=== PATIENT | male | born 1960 | race Caucasian/White ===

== ENCOUNTER 2016-12-11 06:46 | Inpatient (IN) | payer BC ==
[~2016-12-11] VITALS: Ht 182.9 cm; Wt 117.2 kg
[~2016-12-11 06:46] MED LIST: ASPIRIN 32325 MG/TAB PO; ASPIRIN 81M81 MG/TA2 PO; CEPHALEXIN500 M1 PO; COLACE 100100 MG/CAP PO; DIFLUCAN 100MG100 MG PO; LEVAQUIN 750MG750 M1 PO; LIPITOR20 MG PO; LOPID 600M600 MG/TAB PO; MULTIPLE VITAMI1 CAP PO; MULTIVITAMIN1 TA1 PO; NITROSTAT0.4 MG/TAB SL; NO HOME MEDICATIONS; NORVASC 5MG5 MG/TAB PO; PEPCID 20MG TAB20 MG; PHENERGAN 25 TA25 MG PO; PHENERGAN W/CO120 ML PO; PLAVIX 75MG TAB75 MG PO; PRILOSEC 20MG20 MG PO; PROBIOTIC FORMU1 CAP PO; SYNTHROID0.05 MG/TA PO; TESSALON P100 MG/CAP PO; TOPROL XL 25MG25 MG PO; TOPROL XL 50MG50 MG PO; TUSS PO; ZANTAC 150MG T150 MG PO; ZESTRIL 10MG10 MG PO
[2016-12-11 07:39] LABS: BASO # 0.1 (0.0-0.2); BASO % 0.6 % (0.0-2.0); EOS # 0.2 (0.0-0.7); EOS % 1.8 % (0-4.0); GRAN # 6.3 (1.4-6.5); GRAN % 70.9 % (42.2-75.2); HEMOGLOBIN 16.1 g/dl (13.5-18.0); LYMPH # 1.5 (1.2-3.4); LYMPH % 16.8 % (20.0-51.0); MEAN CELL VOLUME 90 fl (80.0-100.0); MEAN CORPUSCULAR HEMOGLOBIN 31 pg (27.0-31.0); MEAN CORPUSCULAR HGB CONC 34 g/dl (33.0-37.0); MEAN PLATELET VOLUME 10.8 fl (7.4-10.4); MONO # 0.9 (0.1-0.6); MONO % 9.6 % (1.7-9.3); PLATELET COUNT 288 K/mm3 (130-400); RED BLOOD COUNT 5.23 M/mm3 (4.20-5.60); WHITE BLOOD COUNT 8.9 K/mm3 (4.8-10.8)
[2016-12-11 07:55] LABS: ADJUSTED CALCIUM 9.2 mg/dL (8.4-10.2); ALANINE AMINOTRANSFERASE 32 U/L (21-72); ALBUMIN 4.7 gm/dL (3.5-5.0); ALKALINE PHOSPHATASE 75 U/L (50-136); ANION GAP 11 mmol/L (7-16); BLOOD UREA NITROGEN 11 mg/dL (9-20); C-REACTIVE PROTEIN 0.6 mg/dL (0.0-0.9); CALCIUM 9.8 mg/dL (8.4-10.2); CARBON DIOXIDE 25 mmol/L (22-30); CHLORIDE 104 mmol/L (98-107); CREATININE, serum 0.81 mg/dL (0.66-1.25); GLUCOSE 99 mg/dL (74-106); POTASSIUM 4.3 mmol/L (3.4-5.0); SODIUM 139 mmol/L (137-145); TOTAL PROTEIN 8.1 gm/dL (6.4-8.2)
[2016-12-11 08:07] LABS: TROPONIN-I < 0.012 ng/mL (0.000-0.034)
[2016-12-11] MEDS ORDERED: XANAX .25M0.25 MG/TA PO (08:08)
[2016-12-11] MEDS ORDERED: PRINIVIL10 MG PO (08:10)
[2016-12-11 10:39] VITALS: BP 141/84; PULSE 77; TEMP 97.8
[2016-12-11 14:33] VITALS: BP 153/84; PULSE 81; TEMP 97.5
[2016-12-11 18:07] VITALS: BP 143/83; PULSE 91; TEMP 98.6
[2016-12-11 23:00] VITALS: BP 136/87; PULSE 93; TEMP 98.3
[2016-12-12 02:55] VITALS: BP 127/76; PULSE 88; TEMP 98.2
[2016-12-12 05:40] VITALS: BP 149/74; PULSE 84; TEMP 97.7
[2016-12-12 07:43] LABS: HEMATOCRIT 47.2 % (42.0-52.0); HEMOGLOBIN 15.4 g/dl (13.5-18.0); MEAN CELL VOLUME 94 fl (80.0-100.0); MEAN CORPUSCULAR HEMOGLOBIN 31 pg (27.0-31.0); MEAN CORPUSCULAR HGB CONC 33 g/dl (33.0-37.0); MEAN PLATELET VOLUME 11.3 fl (7.4-10.4); PLATELET COUNT 243 K/mm3 (130-400); RED BLOOD COUNT 5.02 M/mm3 (4.20-5.60); REDCELL DISTRIBUTION WIDTH-CV 14.6 % (11.5-14.5); WHITE BLOOD COUNT 8.2 K/mm3 (4.8-10.8)
[2016-12-12 07:51] LABS: ADD PATHOLOGY DIFF REVIEW NO
[2016-12-12 07:55] LABS: CALCIUM 8.6 mg/dL (8.4-10.2); CREATININE, serum 0.75 mg/dL (0.66-1.25); POTASSIUM 4.7 mmol/L (3.4-5.0)
[2016-12-12 08:09] LABS: BAND 23 % (0-10); EOSINOPHIL 5 % (0-4); NEUTROPHILS 36 % (42.0-75.2); TOTAL CELLS COUNTED 100
[2016-12-12 08:10] LABS: PLATELET ESTIMATE NORMAL (NORMAL)
[2016-12-12 09:22] VITALS: BP 147/84; PULSE 91; TEMP 97.9
[2016-12-12 13:51] VITALS: BP 157/81; PULSE 88; TEMP 96.8
[2016-12-12 17:45] VITALS: BP 163/81; PULSE 101; PULSE 82; TEMP 97.5
[2016-12-12 21:17] VITALS: BP 175/85; PULSE 91; TEMP 98.5
[2016-12-13 02:00] VITALS: BP 152/73; PULSE 88; TEMP 98.3
[2016-12-13 06:29] VITALS: BP 150/78; PULSE 87; TEMP 98
[2016-12-13 09:25] LABS: BASO % 0.3 % (0.0-2.0); EOS # 0.2 (0.0-0.7); EOS % 3.4 % (0-4.0); GRAN # 4.1 (1.4-6.5); GRAN % 61.1 % (42.2-75.2); HEMATOCRIT 48.1 % (42.0-52.0); HEMOGLOBIN 16.3 g/dl (13.5-18.0); LYMPH # 1.4 (1.2-3.4); LYMPH % 20.9 % (20.0-51.0); MEAN CELL VOLUME 91 fl (80.0-100.0); MEAN CORPUSCULAR HEMOGLOBIN 31 pg (27.0-31.0); MEAN CORPUSCULAR HGB CONC 34 g/dl (33.0-37.0); MONO % 14.2 % (1.7-9.3); PLATELET COUNT 254 K/mm3 (130-400); RED BLOOD COUNT 5.29 M/mm3 (4.20-5.60); REDCELL DISTRIBUTION WIDTH-CV 14.3 % (11.5-14.5); WHITE BLOOD COUNT 6.7 K/mm3 (4.8-10.8)
[2016-12-13 09:33] LABS: ADJUSTED CALCIUM 8.7 mg/dL (8.4-10.2); ALBUMIN 4.4 gm/dL (3.5-5.0); BILIRUBIN,TOTAL 1.1 mg/dL (0.0-1.0); CREATININE, serum 0.77 mg/dL (0.66-1.25); POTASSIUM 4.1 mmol/L (3.4-5.0); TOTAL PROTEIN 7.8 gm/dL (6.4-8.2)
[2016-12-13 10:29] VITALS: BP 171/89; PULSE 89; TEMP 97.4
[2016-12-13 14:15] VITALS: BP 157/72; PULSE 83; TEMP 97.7
[2016-12-13 18:33] VITALS: BP 148/75; PULSE 76; TEMP 98.1
[2016-12-13 22:26] VITALS: BP 153/72; PULSE 90; TEMP 98.3
[2016-12-14 02:35] VITALS: BP 144/80; PULSE 76; TEMP 98.2
[2016-12-14 05:57] VITALS: BP 133/67; PULSE 70; TEMP 98.1
[2016-12-14 10:58] VITALS: BP 128/75; PULSE 72; TEMP 98.2
[2016-12-14 10:59] VITALS: BP 153/78; PULSE 77; TEMP 97.9
[2016-12-14 14:10] VITALS: BP 148/71; PULSE 85; TEMP 98.7
== END 2016-12-14 16:00 | disposition home or self-care (01) | DRG 390 ==
LOC: COL.ER 06:46 → SURG 09:49
PROVIDERS: Physician Assistant; Surgery
DX: K56.60 Unspecified intestinal obstruction (principal); I10 Essential (primary) hypertension; Z85.71 Personal history of Hodgkin lymphoma
CPT/HCPCS: C9113; J1170; J2405; J7030; J7042; Q9967

== ENCOUNTER 2017-10-28 22:33 | Emergency (ER) | payer SELFPAY ==
[~2017-10-28] VITALS: Ht 182.9 cm; Wt 95.5 kg
[~2017-10-28 22:33] MED LIST changes: +PRINIVIL10 MG PO; +XANAX .25M0.25 MG/TA PO
[2017-10-28 22:34] VITALS: BP 169/88; TEMP 98.1
[2017-10-29 00:12] LABS: BASO % 0.4 % (0.0-2.0); EOS # 0.1 (0.0-0.7); EOS % 1.1 % (0-4.0); GRAN # 7.6 (1.4-6.5); GRAN % 73.3 % (42.2-75.2); HEMATOCRIT 41.7 % (42.0-52.0); HEMOGLOBIN 14.4 g/dl (13.5-18.0); LYMPH # 1.4 (1.2-3.4); LYMPH % 13.1 % (20.0-51.0); MEAN CELL VOLUME 94 fl (80.0-100.0); MEAN CORPUSCULAR HEMOGLOBIN 32 pg (27.0-31.0); MEAN CORPUSCULAR HGB CONC 35 g/dl (33.0-37.0); MEAN PLATELET VOLUME 10.2 fl (7.4-10.4); MONO # 1.2 (0.1-0.6); MONO % 11.8 % (1.7-9.3); PLATELET COUNT 298 K/mm3 (130-400); RED BLOOD COUNT 4.46 M/mm3 (4.20-5.60); REDCELL DISTRIBUTION WIDTH-CV 15.4 % (11.5-14.5)
[2017-10-29 00:21] LABS: ALBUMIN 4.2 gm/dL (3.5-5.0); BILIRUBIN,TOTAL 0.6 mg/dL (0.0-1.0); CREATININE, serum 0.75 mg/dL (0.66-1.25); POTASSIUM 3.6 mmol/L (3.4-5.0); TOTAL PROTEIN 7.3 gm/dL (6.4-8.2)
[2017-10-29 02:18] VITALS: PULSE 89
== END 2017-10-29 02:20 | disposition home or self-care (01) ==
LOC: COL.ER 22:33
PROVIDERS: Physician Assistant
DX: S51.821A Laceration with foreign body of right forearm, initial encounter (principal); S00.93XA Contusion of unspecified part of head, initial encounter; Z79.82 Long term (current) use of aspirin; Z79.02 Long term (current) use of antithrombotics/antiplatelets; V29.9XXA Motorcycle rider (driver) (passenger) injured in unspecified traffic accident, initial encounter; Y92.410 Unspecified street and highway as the place of occurrence of the external cause

== ENCOUNTER 2019-05-26 09:43 | Inpatient (IN) | payer BC ==
[~2019-05-26] VITALS: Ht 182.9 cm; Wt 89.5 kg
[2019-05-26 10:54] LABS: BASO % 0.3 % (0.0-2.0); EOS # 0.1 (0.0-0.7); EOS % 0.5 % (0-4.0); GRAN # 9.1 (1.4-6.5); GRAN % 79.6 % (42.2-75.2); HEMATOCRIT 50.8 % (42.0-52.0); HEMOGLOBIN 17.3 g/dl (13.5-18.0); LYMPH # 1.1 (1.2-3.4); LYMPH % 9.1 % (20.0-51.0); MEAN CELL VOLUME 94 fl (80.0-100.0); MEAN CORPUSCULAR HEMOGLOBIN 32 pg (27.0-31.0); MEAN CORPUSCULAR HGB CONC 34 g/dl (33.0-37.0); MEAN PLATELET VOLUME 11.5 fl (7.4-10.4); MONO # 1.2 (0.1-0.6); MONO % 10.1 % (1.7-9.3); PLATELET COUNT 264 K/mm3 (130-400); RED BLOOD COUNT 5.39 M/mm3 (4.20-5.60); REDCELL DISTRIBUTION WIDTH-CV 13.5 % (11.5-14.5)
[2019-05-26 11:08] LABS: ALBUMIN 5.2 gm/dL (3.5-5.0); BILIRUBIN,TOTAL 1.2 mg/dL (0.0-1.0); C-REACTIVE PROTEIN 0.8 mg/dL (0.0-0.9); CALCIUM 10.7 mg/dL (8.4-10.2); CREATININE, serum 1.09 (0.66-1.25); POTASSIUM 4.3 mmol/L (3.4-5.0); TOTAL PROTEIN 8.7 gm/dL (6.4-8.2)
[2019-05-26 14:44] VITALS: BP 128/63; PULSE 84; TEMP 97.7
[2019-05-26] MEDS ORDERED: P (15:23)
--- NOTE | 2019-05-26 15:43 | NUR ---
Patient admitted from ER to room 349. Patient alert & oriented. Inital, med rec & 5 page completed. Ng to Lis. Ivf per orders. Npo few ice chips provided. Patient wanting to rest
--- NOTE | 2019-05-26 18:11 | NUR ---
PATIENT UP AMBULATING HALLS. MINIAML NEEDS. WILL MONITOR.
[2019-05-26 20:00] VITALS: BP 114/63; PULSE 87; TEMP 98.3
[2019-05-27 01:33] VITALS: BP 112/59; PULSE 81; TEMP 98
[2019-05-27 04:41] VITALS: BP 115/68; PULSE 86; TEMP 98.4
--- NOTE | 2019-05-27 04:59 | NUR ---
Patient has had minimal needs throughout the night. Requests pain medication at HS. Effective. NG tube to LIS. Morris drainage noted from NG. Patient states he has passed gas and has been feeling "rumbles" in his stomach. Patient takes ice chips, but is NPO otherwise. Will continue to monitor.
[2019-05-27 07:29] VITALS: BP 129/73; PULSE 80; TEMP 98.1
[2019-05-27 08:18] LABS: BASO % 0.4 % (0.0-2.0); EOS # 0.2 (0.0-0.7); EOS % 2.3 % (0-4.0); GRAN # 6.6 (1.4-6.5); GRAN % 66.6 % (42.2-75.2); HEMATOCRIT 46.4 % (42.0-52.0); HEMOGLOBIN 15.6 g/dl (13.5-18.0); LYMPH # 1.8 (1.2-3.4); LYMPH % 17.9 % (20.0-51.0); MEAN CELL VOLUME 95 fl (80.0-100.0); MEAN CORPUSCULAR HEMOGLOBIN 32 pg (27.0-31.0); MEAN CORPUSCULAR HGB CONC 34 g/dl (33.0-37.0); MEAN PLATELET VOLUME 11.2 fl (7.4-10.4); MONO # 1.2 (0.1-0.6); MONO % 12.6 % (1.7-9.3); PLATELET COUNT 258 K/mm3 (130-400); RED BLOOD COUNT 4.88 M/mm3 (4.20-5.60); REDCELL DISTRIBUTION WIDTH-CV 13.7 % (11.5-14.5)
[2019-05-27 08:31] LABS: BILIRUBIN,TOTAL 1.1 mg/dL (0.0-1.0); CALCIUM 9.5 mg/dL (8.4-10.2); CREATININE, serum 0.9 (0.66-1.25); POTASSIUM 3.9 mmol/L (3.4-5.0)
[2019-05-27 11:47] VITALS: BP 146/48; PULSE 88; TEMP 97.9
--- NOTE | 2019-05-27 12:00 | NUR ---
Patients NG tube has been discontinued. IVF's stopped at this time. Starting patient on a soft diet. He has been taking in clear liquids without pain or nausea. He is passing flatus and having bowel movements this am. No other changes at this time. Call light within reach.
--- NOTE | 2019-05-27 13:47 | NUR ---
Plan: To return home with karen [phone] as care support. Patient also listed as EMR. Patient declined a DPOA at this time. They reside in [facility]. Assess: SW met with patient at his bedside. 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 Patient denied the use of any DME, and reported that his PCP is Dr. Newell, who will be leaving the area. Patient reported that he will have to locate a new PCP. Patient reported that he usually gets his medications from [facility], with no concerns. patient declined receiving HHS at this time. plan: Patient was educated about community resources. He reported that his is in the process of driving home from visiting her daughter in [place].
--- NOTE | 2019-05-27 17:10 | NUR ---
Patient is discharging home. He has been tolerating a soft diet well without nausea or pain. Continues to pass flatus. He stated he is feeling much better. Discharge instructions discussed with patient. No questions verbalized. Copies of discharge instructions sent with patient. Patient is walking out with [place] [place]. All belongings packed up and sent with patient.
== END 2019-05-27 17:16 | disposition home or self-care (01) | DRG 390 ==
LOC: COL.ER 09:43 → SURG 12:51
PROVIDERS: Nurse Practitioner; ADMIT Surgery
DX: K56.600 Partial intestinal obstruction, unspecified as to cause (principal); Z95.5 Presence of coronary angioplasty implant and graft; Z79.82 Long term (current) use of aspirin; Z90.81 Acquired absence of spleen; Z85.72 Personal history of non-Hodgkin lymphomas
CPT/HCPCS: J1170; J2405; J3010; J7030; J7120; Q9967

== ENCOUNTER 2019-09-30 04:07 | Emergency (ER) | payer BC ==
[~2019-09-30] VITALS: Ht 182.9 cm; Wt 86.4 kg
[~2019-09-30 04:07] MED LIST changes: +P
[2019-09-30 04:20] VITALS: TEMP 98.9
[2019-09-30 04:34] LABS: BASO # 0.1 (0.0-0.2); BASO % 0.9 % (0.0-2.0); EOS # 0.2 (0.0-0.7); EOS % 4.3 % (0-4.0); GRAN # 2.3 (1.4-6.5); GRAN % 40.9 % (42.2-75.2); HEMATOCRIT 45.1 % (42.0-52.0); HEMOGLOBIN 15.1 g/dl (13.5-18.0); LYMPH # 2.3 (1.2-3.4); LYMPH % 40.9 % (20.0-51.0); MEAN CELL VOLUME 94 fl (80.0-100.0); MEAN CORPUSCULAR HEMOGLOBIN 32 pg (27.0-31.0); MEAN CORPUSCULAR HGB CONC 34 g/dl (33.0-37.0); MEAN PLATELET VOLUME 10.9 fl (7.4-10.4); MONO # 0.7 (0.1-0.6); MONO % 12.8 % (1.7-9.3); PLATELET COUNT 255 K/mm3 (130-400); RED BLOOD COUNT 4.79 M/mm3 (4.20-5.60); REDCELL DISTRIBUTION WIDTH-CV 14.6 % (11.5-14.5)
[2019-09-30 04:40] LABS: INR 0.9 (0.8-3.0); PROTHROMBIN TIME 9.6 SECONDS (9.7-12.8)
[2019-09-30 04:43] LABS: PARTIAL THROMBOPLASTIN TIME 33.5 SECONDS (26.0-37.0)
[2019-09-30 04:46] LABS: ALANINE AMINOTRANSFERASE 22 U/L (4-49); ALBUMIN 4.3 gm/dL (3.5-5.0); ALKALINE PHOSPHATASE 65 U/L (50-136); ANION GAP 8 mmol/L (7-16); AST,SGOT 33 U/L (15-37); BILIRUBIN,TOTAL 0.6 mg/dL (0.0-1.0); BLOOD UREA NITROGEN 20 mg/dL (9-20); CALCIUM 9.1 mg/dL (8.4-10.2); CARBON DIOXIDE 24 mmol/L (22-30); CHLORIDE 104 mmol/L (98-107); CREATININE, serum 0.72 (0.66-1.25); GLUCOSE 111 mg/dL (74-106); SODIUM 136 mmol/L (137-145); TOTAL PROTEIN 7.5 gm/dL (6.4-8.2)
[2019-09-30 05:08] LABS: TROPONIN-I < 0.012 ng/mL (0.000-0.035)
[2019-09-30 05:43] LABS: ARTERIAL BLD GAS O2 SATURATION 93.2 % (92-100); ARTERIAL BLD GAS TCO2 CT 19.5; ARTERIAL BLOOD GAS BASE EXCESS -4.3 (-2-2); ARTERIAL BLOOD GAS HCO3 18.6 meq/L (22-26); ARTERIAL BLOOD GAS PCO2 28.6 mmHg (35-45); ARTERIAL BLOOD GAS PO2 69.4 mmHg (80-100); ARTERIAL BLOOD GAS pH 7.43 (7.35-7.45)
[2019-09-30 08:13] VITALS: BP 168/88; PULSE 76
== END 2019-09-30 08:40 | disposition short-term general hospital (02) ==
LOC: COL.ER 04:07
PROVIDERS: Emergency Medicine
DX: R04.2 Hemoptysis (principal); R09.02 Hypoxemia; I10 Essential (primary) hypertension; E78.5 Hyperlipidemia, unspecified; I25.10 Atherosclerotic heart disease of native coronary artery without angina pectoris; Z79.82 Long term (current) use of aspirin; Z85.71 Personal history of Hodgkin lymphoma; Z87.09 Personal history of other diseases of the respiratory system; Z90.81 Acquired absence of spleen; Z95.5 Presence of coronary angioplasty implant and graft
CPT/HCPCS: J2060; J7030; Q9967

== ENCOUNTER 2019-11-25 21:33 | Emergency (ER) | payer BC ==
[~2019-11-25] VITALS: Ht 180.3 cm; Wt 95.5 kg
[2019-11-25 21:47] LABS: BASO % 0.4 % (0.0-2.0); EOS # 0.1 (0.0-0.7); EOS % 0.9 % (0-4.0); GRAN # 6.9 (1.4-6.5); GRAN % 65.8 % (42.2-75.2); HEMATOCRIT 43.1 % (42.0-52.0); HEMOGLOBIN 14.5 g/dl (13.5-18.0); LYMPH % 18.9 % (20.0-51.0); MEAN CELL VOLUME 94 fl (80.0-100.0); MEAN CORPUSCULAR HEMOGLOBIN 32 pg (27.0-31.0); MEAN CORPUSCULAR HGB CONC 34 g/dl (33.0-37.0); MEAN PLATELET VOLUME 10.9 fl (7.4-10.4); MONO # 1.4 (0.1-0.6); MONO % 13.6 % (1.7-9.3); PLATELET COUNT 243 K/mm3 (130-400); RED BLOOD COUNT 4.57 M/mm3 (4.20-5.60); REDCELL DISTRIBUTION WIDTH-CV 13.8 % (11.5-14.5)
[2019-11-25 21:56] LABS: ALANINE AMINOTRANSFERASE 22 U/L (4-49); ALBUMIN 4.5 gm/dL (3.5-5.0); ALKALINE PHOSPHATASE 56 U/L (50-136); ANION GAP 12 mmol/L (7-16); AST,SGOT 37 U/L (15-37); BILIRUBIN,TOTAL 0.5 mg/dL (0.0-1.0); BLOOD UREA NITROGEN 24 mg/dL (9-20); CALCIUM 9.7 mg/dL (8.4-10.2); CARBON DIOXIDE 20 mmol/L (22-30); CHLORIDE 108 mmol/L (98-107); CREATINE KINASE 213 U/L (55-170); CREATININE, serum 1.55 (0.66-1.25); GLUCOSE 94 mg/dL (74-106); POTASSIUM 3.6 mmol/L (3.4-5.0); SODIUM 140 mmol/L (137-145); TOTAL PROTEIN 7.5 gm/dL (6.4-8.2)
[2019-11-25 22:12] LABS: TROPONIN-I < 0.012 ng/mL (0.000-0.035)
[2019-11-26 00:11] VITALS: BP 128/74; PULSE 76; TEMP 98.3
== END 2019-11-26 00:32 | disposition home or self-care (01) ==
LOC: COL.ER 21:33
PROVIDERS: Emergency Medicine
DX: E16.2 Hypoglycemia, unspecified (principal); N28.9 Disorder of kidney and ureter, unspecified; R55 Syncope and collapse; I25.10 Atherosclerotic heart disease of native coronary artery without angina pectoris; E78.5 Hyperlipidemia, unspecified; Z79.82 Long term (current) use of aspirin; Z85.71 Personal history of Hodgkin lymphoma; Z95.5 Presence of coronary angioplasty implant and graft
CPT/HCPCS: J7030

== ENCOUNTER 2020-10-21 10:32 | Observation (INO) | payer BC ==
[~2020-10-21] VITALS: Ht 180.3 cm; Wt 88.6 kg
[2020-10-21 11:23] LABS: ALBUMIN 5.2 gm/dL (3.5-5.0); BILIRUBIN,TOTAL 0.8 mg/dL (0.0-1.0); CALCIUM 10.5 mg/dL (8.4-10.2); CREATININE, serum 1.11 (0.66-1.25); POTASSIUM 4.3 mmol/L (3.4-5.0); TOTAL PROTEIN 8.9 gm/dL (6.4-8.2)
[2020-10-21 11:26] LABS: BASO % 0.2 % (0.0-2.0); EOS % 0.3 % (0-4.0); GRAN # 9.1 (1.4-6.5); GRAN % 80.2 % (42.2-75.2); HEMATOCRIT 48.7 % (42.0-52.0); HEMOGLOBIN 16.9 g/dl (13.5-18.0); LYMPH # 0.7 (1.2-3.4); LYMPH % 5.7 % (20.0-51.0); MEAN CELL VOLUME 93 fl (80.0-100.0); MEAN CORPUSCULAR HEMOGLOBIN 32 pg (27.0-31.0); MEAN CORPUSCULAR HGB CONC 35 g/dl (33.0-37.0); MEAN PLATELET VOLUME 11.6 fl (7.4-10.4); MONO # 1.5 (0.1-0.6); MONO % 13.3 % (1.7-9.3); PLATELET COUNT 266 K/mm3 (130-400); RED BLOOD COUNT 5.25 M/mm3 (4.20-5.60); REDCELL DISTRIBUTION WIDTH-CV 14.4 % (11.5-14.5)
[2020-10-21 13:23] VITALS: BP 145/70; PULSE 81; TEMP 98
--- NOTE | 2020-10-21 14:08 | NUR ---
Patient to room 347 by wheelchair from ER. Nurse oriented patient to location, call light and bed. Assessment complete.VSS. IV CDI. NG tube intact and on LIS. Denies pain and discomfort. No further needs expressed from the patient. Call light within reach
[2020-10-21 16:08] VITALS: BP 124/71; PULSE 85; TEMP 97.7
--- NOTE | 2020-10-21 17:48 | NUR ---
Patient resting in bed. Independent in room. VSS. IV CDI, fluids infusing. Denies pain and discomfort. NG tube LIS, moderate output. Ice chips at the bedside. Call light within reach
--- NOTE | 2020-10-21 19:30 | NUR ---
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 Assessment complete. A&Ox3. Denies pain/nausea/shortness of breath. States "I am starting to feel movement in my belly." NG to right nare 16F to LIS. Morris return noted to suction cannister. Has been NPO except for a few ice chips. Has been up to ambulate in the hallway. Plan of care discussed for this shift to include pain/nausea control/HS meds/NPO status/calling for questions/concerns. Verbalizes understanding/denies needs. Call light in reach. Will monitor.
[2020-10-21 19:45] VITALS: BP 118/59; PULSE 78; TEMP 97.6
[2020-10-21 23:53] VITALS: BP 113/62; PULSE 77; TEMP 97.9
--- NOTE | 2020-10-22 00:21 | NUR ---
Awake in bed with lights out trying to rest. Denies pain/nausea/shortness of breath. Instructed to use urinal with next void so a UA can be collected. Verbalizes understanding. Noted to have had approx 300mls of NG output to cannister-brown/green/undigested food. Denies needs. Call light in reach. Will monitor.
[2020-10-22 04:36] VITALS: BP 118/58; PULSE 73; TEMP 97.5
--- NOTE | 2020-10-22 06:27 | NUR ---
Rested well this shift. Total out NG 600mls of brown/green fluid with undigested food. Denies pain/nausea/shortness of breath. VS remained stable. Denies current needs. Call light in reach. Will monitor.
[2020-10-22 06:50] LABS: HEMATOCRIT 46.2 % (42.0-52.0); HEMOGLOBIN 15.4 g/dl (13.5-18.0); MEAN CELL VOLUME 96 fl (80.0-100.0); MEAN CORPUSCULAR HEMOGLOBIN 32 pg (27.0-31.0); MEAN CORPUSCULAR HGB CONC 33 g/dl (33.0-37.0); MEAN PLATELET VOLUME 12.9 fl (7.4-10.4); PLATELET COUNT 175 K/mm3 (130-400); RED BLOOD COUNT 4.83 M/mm3 (4.20-5.60); REDCELL DISTRIBUTION WIDTH-CV 14.7 % (11.5-14.5)
[2020-10-22 07:02] LABS: CALCIUM 9.3 mg/dL (8.4-10.2); CREATININE, serum 0.9 (0.66-1.25); POTASSIUM 3.9 mmol/L (3.4-5.0)
--- NOTE | 2020-10-22 07:13 | NUR ---
Patient laying in bed watching TV. VSS. IV CDI, fluids infusing. Denies pain and discomfort. NG LIS, intact. Audible bowel sounds all quadrants. Patient states that hes feeling better. Independent in room. No further needs expressed from the patient. Call light within reach
[2020-10-22 07:24] LABS: COLLECTION METHOD CLEAN CATCH
[2020-10-22 07:51] LABS: MUCOUS Present /lpf; PH 5 (5-8); SQUAMOUS EPITHELIAL 0-2 /hpf; URINE APPEARANCE Hazy; URINE BACTERIA None Seen /hpf; URINE BILIRUBIN Negative (NEGATIVE); URINE BLOOD Negative (NEGATIVE); URINE COLOR Yellow; URINE GLUCOSE Negative (NEGATIVE); URINE KETONE 1+ (NEGATIVE); URINE LEUKOCYTE ESTERASE Negative (NEGATIVE); URINE NITRATE Negative (NEGATIVE); URINE PROTEIN(semi-quant) Negative (NEGATIVE); URINE RBC 0-2 /hpf; URINE UROBILINOGEN Negative (NEGATIVE)
[2020-10-22 08:32] VITALS: BP 136/79; PULSE 87; TEMP 97.8
[2020-10-22 11:56] VITALS: BP 120/63; PULSE 81; TEMP 97.9
--- NOTE | 2020-10-22 13:30 | NUR ---
Initial visit; Patient thanked Scheduler Conveyor for stopping and offering God's blessings.
--- NOTE | 2020-10-22 13:48 | NUR ---
Discharge paperwork reviewed with the patient. Patient verbalized an understanding to follow doctors orders. IV removed, tip intact, gauze and coban applied. Patient ambulated independently with the nurse to ER entrance. No further needs expressed from the patient.
== END 2020-10-22 13:51 | disposition home or self-care (01) ==
LOC: COL.ER 10:32 → SURG 11:54
PROVIDERS: Emergency Medicine; ADMIT Surgery
DX: K56.609 Unspecified intestinal obstruction, unspecified as to partial versus complete obstruction (principal); E78.5 Hyperlipidemia, unspecified; I10 Essential (primary) hypertension; Z85.72 Personal history of non-Hodgkin lymphomas; Z92.3 Personal history of irradiation; Z95.818 Presence of other cardiac implants and grafts; Z79.82 Long term (current) use of aspirin
CPT/HCPCS: C9113; G0378; J2405; J3010; J7120; Q9967